=== PATIENT | male | born 1955 | race Caucasian/White ===

== ENCOUNTER → 2022-08-25 11:04 | Outpatient (CLI) | payer MEDICARE, BC, SELFPAY ==
[2022-08-25 12:32] LABS: Add Manual Diff / Slide Review NO; Basophils Absolute Auto 100 /uL (0-100); Basophils Percent Auto 0.8 % (0-2); Eosinophils Absolute Auto 100 /uL (0-450); Eosinophils Percent Auto 1.6 % (2-4); Hematocrit 46.2 % (41-53); Hemoglobin 15.9 g/dL (13.5-17.5); Lymphocytes Absolute Auto 1800 /uL (1100-4500); Lymphocytes Percent Auto 21.5 % (25-40); Mean Corpuscular HGB Conc 34.4 % (30-36); Mean Corpuscular Hemoglobin 34.7 PG (26-34); Mean Corpuscular Volume 100.9 fL (80-100); Monocytes Absolute Auto 800 /uL (0-900); Monocytes Percent Auto 9.4 % (3-14); Neutrophils Absolute Auto 5700 /uL (1500-7000); Neutrophils Percent Auto 66.7 % (50-75); Platelet Count 185 X10^3/uL (150-400); Red Blood Cell Count 4.58 X10^6/uL (4.5-5.9); White Blood Cell Count 8.5 X10^3/uL (4.5-11.0)
[2022-08-25 12:57] LABS: Blood Urea Nitrogen 14 mg/dL (9-20); Calcium 8.4 mg/dL (8.4-10.2); Carbon Dioxide 27 mmol/L (22-32); Chloride 93 mmol/L (98-107); Estimated Glomerular Filt Rate 43 mL/min (>60); Glucose 123 mg/dL (80-110); HEMOLYSIS < 15 (0-50); Potassium 4.4 mmol/L (3.4-5.1); Sodium 132 mmol/L (137-145)
[2022-08-26 04:38] LABS: Labcorp Hemoglobin (Hb) A1c 6.1 % (4.8-5.6)
== END ==
PROVIDERS: Referring Provider Orthopaedic Surgery Orthopaedic Surgery of the Spine; Visit Provider Orthopaedic Surgery Orthopaedic Surgery of the Spine
DX: Z01.818 Encounter for other preprocedural examination (principal); R73.9 Hyperglycemia, unspecified; Z01.812 Encounter for preprocedural laboratory examination
CPT/HCPCS: 36415; 80048; 83036; 85025; 93005; 93010

== ENCOUNTER 2022-10-14 10:34 | Inpatient (IN) | payer MEDICARE, BC, SELFPAY ==
[2022-10-03 12:30] VITALS: BMI 36.8
[2022-10-14] VITALS (19 sets, daily range): BP systolic 103–154; BP diastolic 62–98; PULSE 65–107; RESP 12–25; TEMP 36.2–36.7; O2SAT 90–100; BMI 36.8
--- NOTE | 2022-10-14 | DI.RAD.S_ITS ---
PROCEDURE: XR LUMBAR SPINE 2-3V INDICATIONS: L3-4 TLIF TECHNIQUE: 2 views of the lumbar spine were acquired. COMPARISON: None. FINDINGS: 2 intraoperative fluoroscopic images of the lumbar spine demonstrates posterior spinal fusion and discectomy at L3-4. Paraspinal rods pedicular screws appear grossly intact. Normal postsurgical alignment. IMPRESSION: Intraoperative fluoroscopic support for posterior lumbar fusion at L3-4. Please see separate procedure note for further details. Dictated by: Yves Marc M.D. on 10/14/2022 at 15:31 Approved by: Yves Marc M.D. on 10/14/2022 at 15:35
--- NOTE | 2022-10-14 11:12 | PM.PREOP ---
Pre-operative Note COVID-19 Criteria for continued procedure: Expected advancement of disease process, Possibility delay results in more complex future surgery or treatment, Increased loss of function, Continuing or worsening of significant or severe pain, Deterioration of the patient's condition or overall health and Delay expected to result in less-positive ultimate med/surg outcome Interval Note History & Physical reviewed/Exam performed by Physician: Yes Changes to H&P: No
[2022-10-14] MEDS: ACETAMINOPHEN 325 MG TABLET 975 MG PO (11:26)
[2022-10-14] MEDS: GABAPENTIN 600 MG TABLET PO (11:26)
[2022-10-14] MEDS: LACTATED RINGERS 1,000 ML 42 ML IV (11:27)
[2022-10-14 11:48] LABS: BUN Creatinine Ratio 13.5 (6-22); Blood Urea Nitrogen 13 mg/dL (9-20); Calcium 7.9 mg/dL (8.4-10.2); Carbon Dioxide 30 mmol/L (22-32); Chloride 96 mmol/L (98-107); Estimated Glomerular Filt Rate > 60 mL/min (>60); Glucose 135 mg/dL (80-110); HEMOLYSIS < 15 (0-50); Potassium 3.5 mmol/L (3.4-5.1); Sodium 132 mmol/L (137-145)
--- NOTE | 2022-10-14 11:53 | P.HP_ITS ---
History of Present Illness History of Present Illness Date Patient Seen: 10/14/22 Time Patient Seen: 11:30 Date of Onset of Symptoms: 12/17/20 Chief complaint: leg pain and weakness Narrative: Luis is a 67 year old male Who presents today for a lumbar spine consultation. Patient notes chronic low back pain for 5 years, but fell 1 month ago. Symptoms include constant sciatica, bilateral lower extremity numbness tingling. Treatments include physical therapy, Muscle relaxers, and gabapentin. Patient lives in [place] in the winter and spends [place] here. No PCP here. He has been having chronic pain for 5 years. He had multiple conservative care including CINDA, facet injections, ablations without improvement. He has difficulty walking and performing activities of daily living. [facility] Medical History Asthma Diverticulosis GERD (gastroesophageal reflux disease) Gout Hiatal hernia History of COVID-19 (~03/2022) HTN (hypertension) Neuropathy Palpitations Pre-diabetes Sciatica Skin abscess Surgical History History of ankle surgery Hx of arthroscopy of right knee Hx of bilateral cataract extraction Hx of LASIK Hx of tonsillectomy Social History household members: spouse Smoking Status: Never smoker alcohol intake: current Meds Home Medications and Allergies Home Medications Medication Instructions Recorded Confirmed Type allopurinol 300 mg tablet 300 mg PO DAILY 10/03/22 10/14/22 History amlodipine 10 mg-benazepril 20 mg 1 cap PO DAILY 10/03/22 10/14/22 History capsule amoxicillin 500 mg capsule 1,000 mg PO QAM Chronic skin 10/03/22 10/14/22 History abscess esomeprazole magnesium 40 mg 40 mg PO DAILY 10/03/22 10/14/22 History capsule,delayed release gabapentin 600 mg tablet 1,200 mg PO BEDTIME 10/03/22 10/14/22 History hydrochlorothiazide 25 mg tablet 25 mg PO DAILY 10/03/22 10/14/22 History metformin 850 mg tablet 850 mg PO BID 10/03/22 10/14/22 History Allergies Allergy/AdvReac Type Severity Reaction Status Date / Time erythromycin base Allergy Severe Anaphylaxis Verified 10/14/22 10:51 morphine AdvReac Severe It had an Verified 10/14/22 10:51 adverse reaction, hyperactive Review of Systems Review of Systems ROS: Yes All systems reviewed with the patient and are negative except as otherwise documented Exam Vital Signs (past 8 hours): - 10/14/22 10:54 Temperature 97.2 F L Pulse Rate 107 H Respiratory Rate 16 Blood Pressure 136/86 Pulse Oximetry 98 Oxygen Delivery Method Room Air Oxygen Delivery Method Room Air Back/Spine/Pelvis Other: Painful lumbar ROM Neuro Other: + Straight leg raise to LLE, sensiblity decreased to bilateral LE in L3, L4, L5 dermatome, motor strenght 4/5 in L TA and EHL. Objective Labs 10/14/22 11:15 Labs: Laboratory Results - last 24 hr 10/14/22 11:15 Sodium 132 L Potassium 3.5 Chloride 96 L Carbon Dioxide 30 BUN 13 Creatinine 0.96 Estimated GFR > 60 BUN/Creatinine Ratio 13.5 Glucose 135 H Calcium 7.9 L Assessment & Plan Assessment & Plan narrative: Mr. Andersen is here for evaluation of his lumbar spine. He has symptoms of neurogenic claudication with bilateral leg weakness, numbness and tingling. He has difficulty walking due to leg weakness and pain and has significant weight gain as result. I discussed my findings with him. I discussed treatment options with risks and benefits. He may benefit from surgical decompression with L3-4 total facetectomies and cyst removal, which will render his L3-4 level grossly unstable and require a fusion procedure at the same time. He has moderate stenosis with epidural lipomatosis at L4-5 level, which can be decompressed using hemilaminectomy. Risks for surgery include but not limited to bleeding, infection, nerve/dura/bladder/bowel/blood vessel injury, need for additional procedure, even . Patient understands and would like to proceed with surgery. I scheduled him for L3-4 TLIF and L4-5 hemilaminectomy.
[2022-10-14] MEDS: CEFAZOLIN 2 GM/100 ML PREMIX 100 ML IV ×2 (12:20→20:44)
--- NOTE | 2022-10-14 12:56 | SUR.OPER ---
Prone on spine table, head in foam head support, padded chest and pelvic supports, gel pad at knees, lower legs supported by pillows; nipples, genitalia and toes free of pressure, arms secured on foam padded arm boards at <90 degrees abduction. Tape over blanket at thigh secured to table.
[2022-10-14] MEDS: BUPIVACAINE LIPOSOME 266 MG/20 ML VIAL INJ (14:28)
[2022-10-14] MEDS: BUPIVACAINE 0.25% (PF) 30 ML, EPINEPHrine 0.15 MG INJ (14:30)
--- NOTE | 2022-10-14 14:54 | PM.OP.1 ---
Operative Date/Time/Diagnoses Date of procedure: 10/14/22 Time of procedure: 12:30 Pre-op diagnosis: 1. L3-4, L4-5 spinal stenosis 2. 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 Epidural lipomatosis Post-op diagnosis: same Procedure & Clinicians Procedure: 1. L3-4 Postero-lateral and posterior interbody fusion 2. L3-4 interbody cage placement. 3. L3-4 decompressive laminectomy with bilateral facetecomies 4. L3-4 Posterior non-segmental instrumentation 5. L4-5 left hemilaminectomy 6. [place] of bone marrow from iliac crest 7. Utilization of microsurgical technique and operating microscope7 Same procedure as scheduled: Yes Indications: Patient has been having chronic back pain and worsening lumbar radiculopathy and symptoms of neurogenic claudication. Patient failed multiple conservative management with worsening pain weakness and numbness in his lower extremity. Patient has been having difficulty performing activity of daily living. After discussing risks benefits of treatment options, patient elected proceed with surgery. Surgeon: Christo Argueta Gauge Maker Apprentice: Jazmin Mendoza Click Yes if Unassisted: No Anesthesia Type: General Operative Notes Closure Type: primary Specimen(s): none sent Prosthetic devices, grafts, tissues, transplants, or devices: Globus revolve screws, Rise cage Estimated Blood Loss (mL): 50 Blood products transfused: none Procedure in detail: Patient was seen in the preoperative area. Risks and benefits of the surgery was discussed with the patient. Informed consent was obtained from the patient and placed in the chart. Surgical site was marked. Patient was taken to the operative room. General anesthesia was administered. Prophylactic antibiotic was given to the patient less than 30 min before the incision was made. Patient was placed into a prone position on the Daryl table. Patient's back was then prepped and draped in the sterile fashion. Time-out was performed at this time. Using AP and lateral C-arm imaging the interval between L3-4 L4-5 was identified and marked on patient's back. A 2 inch incision 2 in from midline was made on the left side first. The fascia was incised in line with skin incision. Globus MARS retractors was placed inside the incision and docked onto the L3 lamina. Using microsurgical technique and operating microscope, a L3 laminectomy and L3-4 facetectomy was performed using a Kerrison rongeur. The laminectomy and facetectomy was performed in order to decompress patient's cauda equina as well as the nerve roots exiting at the L3-4 level. The disc space at L3-4 was identified. And a total diskectomy was performed at L3-4 level. The endplates were decorticated using a rasp and shaver. The total diskectomy and decortication was performed at L3-4 level in order to to accomplish a L3-4 fusion. The local bone from the laminectomy and facetectomy was saved for local bone grafting. After the total diskectomy and decortication was completed, Globus viacell bone graft material was combined with local bone that was harvested earlier. At this time, a separate skin is incision was made over the iliac crest. A Jamshidi needle was inserted into the iliac crest through a separate skin incision. 5 cc of bone marrow aspiration was obtained through the separate skin incision using a Jamshidi needle from the iliac crest. The bone marrow aspiration was combined with local bone and the via cell bone grafting material. The bone grafting material was placed into the L3-4 interbody space along with a expandable cage. The cage was expanded to its maximum height using the torque limiting screwdriver. Patient was found have a large 1.5 cm synovial cyst in epidural space originating from the L3-4 facet on the left side. The cyst wall was intimately adhered to the epidural fat along with the dura. There was also significant amount of epidural lipomatosis further contributing to the severe spinal stenosis at L3-4 level. After the laminectomy facetectomy cyst removal and the lipomatosis removal. The epidural space and lateral recess was fully decompressed. At this time the MARS retractor was redirected over the L4 lamina. Using microsurgical technique and operating microscope, a L4-5 heminectomy was performed using the Kerrison rongeur. The ligamentum flavum was also resected at the side of the hemilaminectomy for further decompression of the epidural space. At this time a mirror image incision was made on the right side. The fascia was incised in line with the skin incision. Globus MARS retractor was inserted and docked onto the L3-4 posterolateral gutter. Using the power drill, posterior-lateral decortication was performed at L3-4 level until bleeding cortical bone was identified. The remaining bone grafting material was placed into the L3-4 posterior lateral gutter he order to accomplish posterolateral fusion at the L3-4 level. Using the double C-arm technique, pedicle screws were placed into the L3 and L4 pedicles bilaterally. This was done by placing the Jamshidi needle into the pedicles, then placing the guidewires over the Jamshidi needle, and finally placing the cannulated screws over the guidewires bilaterally. After the pedicle screws were placed, 2 titanium rods was locked into the heads of the pedicle screws using locking caps and torque limiting screwdriver. After all the hardware was placed, and confirmed with AP and lateral C-arm imaging, the wound was then irrigated with sterile normal saline and packed with Ray-Syeda gauze for 3 min to accomplish hemostasis. After the gauze was removed the deep fascia was closed with #1 Vicryl suture. The subcutaneous layer was closed with 2-0 Vicryl. The skin was closed with skin jf. Patient tolerated the procedure well. There were no complications. Complications: none Post-operative Condition: stable Disposition: PACU Plan for aftercare: Admit to inpatient hospital
[2022-10-14] MEDS: hydrOXYzine 50 MG/ML INJ 25 MG IM (15:18)
[2022-10-14] MEDS: HYDROMORPHONE 2 MG INJ IV ×4 (15:23→15:56)
--- NOTE | 2022-10-14 15:47 | SUR.PHASEI ---
Dr Argueta at bedside. Informed of patient complaints of new pain to left inner leg from groin to knee. No new orders. stated surgery went well.
[2022-10-14] MEDS: LORazepam 2 MG/ML INJ 0.25 MG IV ×2 (16:08→16:13)
[2022-10-14] MEDS: OXYCODONE IR 5 MG TABLET PO (16:32)
[2022-10-14] MEDS: LACTATED RINGERS 1,000 ML 125 ML IV (18:31)
--- NOTE | 2022-10-14 19:26 | PC.NURSE ---
Day shift: Pt admitted to the floor from PACU at 1715. Incision on pt's back has scant amount of drainage. Pt rating pain 4/10. PIV running LR at 125. Educated patient on IS, pt sat'ing 88-92 on room air. With incentive spirometer, sats increase to 97 percent. Pt did not void before surgery or in PACU. STATIONARY BOILER FIREMAN bladder scanned him at 1700 for 187mL. Pt has not voided yet as of 1899, night RN Jimmy rodriguez. [facility] in tact. Pt's at bedside. Pt states he drinks approximately 3 drinks each night - CIWA protocol initiated. No s/sx now. Will continue to monitor.
[2022-10-14] MEDS: OXYCODONE IR 10 MG TABLET PO (20:44)
[2022-10-14] MEDS: ACETAMINOPHEN 325 MG TABLET 650 MG PO (20:45)
[2022-10-14] MEDS: DOCUSATE 100 MG CAPSULE PO (20:46)
[2022-10-14] MEDS: METFORMIN HCL 500 MG TABLET 750 MG PO (20:46)
[2022-10-14] MEDS: hydrOXYzine pamoate 25 MG CAPSULE PO (20:46)
[2022-10-14] MEDS: GABAPENTIN 600 MG TABLET 1200 MG PO (20:46)
[2022-10-14] MEDS: SENNOSIDES 8.6 MG TABLET 17.2 MG PO (20:46)
[2022-10-15] MEDS: OXYCODONE IR 10 MG TABLET PO ×6 (00:14→20:04)
[2022-10-15 01:36] VITALS: BP 125/78; PULSE 87; RESP 18; TEMP 36.8; O2SAT 95
[2022-10-15] MEDS: ACETAMINOPHEN 325 MG TABLET 650 MG PO ×2 (03:27→20:05)
[2022-10-15] MEDS: PANTOPRAZOLE DR 40 MG TABLET PO (05:33)
[2022-10-15] MEDS: CEFAZOLIN 2 GM/100 ML PREMIX 100 ML IV (05:33)
[2022-10-15 08:00] VITALS: BP 125/75; PULSE 94; RESP 16; TEMP 36.2; O2SAT 97
[2022-10-15] MEDS: allopurinoL 100 MG TABLET 300 MG PO (08:19)
[2022-10-15] MEDS: hydroCHLOROthiazide 25 MG TABLET PO (08:19)
[2022-10-15] MEDS: DOCUSATE 100 MG CAPSULE PO ×2 (08:19→20:05)
[2022-10-15] MEDS: AMLODIPINE 5 MG TABLET 10 MG PO (08:19)
[2022-10-15 08:20] VITALS: BP 125/75; PULSE 94
[2022-10-15] MEDS: lisinopriL 20 MG TABLET PO (08:20)
[2022-10-15] MEDS: METFORMIN HCL 500 MG TABLET 750 MG PO ×2 (08:20→20:04)
[2022-10-15] MEDS: AMOXICILLIN 250 MG CAPSULE 1000 MG PO (08:20)
--- NOTE | 2022-10-15 09:06 | PM.DS.1 ---
History of Present Illness History of Present Illness Date Patient Seen: 10/15/22 Time Patient Seen: 09:06 Chief complaint: leg pain and weakness Narrative: Operative Date/Time/Diagnoses Date of procedure: 10/14/22 Time of procedure: 12:30 Pre-op diagnosis: 1. L3-4, L4-5 spinal stenosis 2. 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 Epidural lipomatosis Post-op diagnosis: same Procedure & Clinicians Procedure: 1. L3-4 Postero-lateral and posterior interbody fusion 2. L3-4 interbody cage placement. 3. L3-4 decompressive laminectomy with bilateral facetecomies 4. L3-4 Posterior non-segmental instrumentation 5. L4-5 left hemilaminectomy 6. [place] of bone marrow from iliac crest 7. Utilization of microsurgical technique and operating microscope7 Same procedure as scheduled: Yes Indications: Patient has been having chronic back pain and worsening lumbar radiculopathy and symptoms of neurogenic claudication. Patient failed multiple conservative management with worsening pain weakness and numbness in his lower extremity.? Patient has been having difficulty performing activity of daily living.? After discussing risks benefits of treatment options, patient elected proceed with surgery. Surgeon: Christo Argueta Pillowcase Sewer: Jazmin Mendoza Click Yes if Unassisted: No Anesthesia Type: General Operative Notes Closure Type: primary Specimen(s): none sent Prosthetic devices, grafts, tissues, transplants, or devices: Globus revolve screws, Rise cage Estimated Blood Loss (mL): 50 Blood products transfused: none Discharge Providers Provider Date of admission: 10/14/22 10:34 Discharge Date: 10/15/22 Consults: 10/14/22 11:07 Consult to Gang Plank Workman Routine Comment: 10/14/22 17:12 Consult to Occupational Therapy Evaluate & Treat Comment: Physician Instructions: Evaluate and treat Consult to Physical Therapy Evaluate & Treat Comment: Physician Instructions: Evaluate and Treat 10/14/22 18:06 Consult to Gang Plank Workman Routine Comment: Discharge provider: Jazmin Mendoza PA-C Summary Hospital Course Discharge Diagnosis: L3-4, L4-5 spinal stenosis, L3-4 synovial cyst with epidural adhesion, Epidural lipomatosis; s/p lumbar fusion and hemilaminectomy Hospital Course: Mr Andersen's hospital course was unremarkable. In the PACU, he was c/o severe LLE pain, but on the morning of POD# 1 this had resolved. He had back pain only, and this was controlled w/ oral medication. He was eating and voiding without difficulty. He had not been OOB or worked w/ PT yet. He felt he would like to go home later in the day if he passed PT with flying colors; [place] and wants to make sure he is safe to return. Exam Vital Signs (past 8 hours): - 10/15/22 01:36 10/15/22 08:20 Temperature 98.3 F Pulse Rate 87 94 H Respiratory Rate 18 Blood Pressure 125/78 125/75 Pulse Oximetry 95 Oxygen Flow Rate 0 Oxygen Delivery Method Room Air Oxygen Flow Rate 0 Narrative Exam Narrative: 5/5 strength in hip flexors, quadriceps, hamstrings, DF, PF, EHL bilaterally. Sensation to light touch intact in BLE. Calves soft, compressible, nontender and without palpable cords or masses. Dressing placed intraoperatively w/ bloody drainage. Objective Labs 10/14/22 11:15 Labs: Laboratory Results - last 24 hr 10/14/22 11:15 Sodium 132 L Potassium 3.5 Chloride 96 L Carbon Dioxide 30 BUN 13 Creatinine 0.96 Estimated GFR > 60 BUN/Creatinine Ratio 13.5 Glucose 135 H Calcium 7.9 L PFSH Medical History Asthma Diverticulosis GERD (gastroesophageal reflux disease) Gout Hiatal hernia History of COVID-19 (~03/2022) HTN (hypertension) Neuropathy Palpitations Pre-diabetes Sciatica Skin abscess Surgical History History of ankle surgery Hx of arthroscopy of right knee Hx of bilateral cataract extraction Hx of LASIK Hx of tonsillectomy Social History household members: spouse Smoking Status: Never smoker alcohol intake: current Discharge Assessment & Plan Assessment and Plan Assessment: L3-4, L4-5 spinal stenosis, L3-4 synovial cyst with epidural adhesion, Epidural lipomatosis; s/p lumbar fusion and hemilaminectomy Plan of Treatment: Discharge home later today if pt does well w/ PT and is feeling confident in getting around his boat. Multimodal pain control, f/u in office in 2 weeks as scheduled. Discharge Plan Discharge Plan Patient Disposition: Home Discharge orders & Medications Prescriptions: New oxycodone 5 mg tablet 5 mg PO Q4H PRN (Reason: pain, severe) Qty: 60 0RF docusate sodium 100 mg Capsule 100 mg PO BID PRN (Reason: constipation) Qty: 60 1RF acetaminophen 325 mg Tablet 650 mg PO Q6H PRN (Reason: Fever/Mild Pain (1-3)) Qty: 240 0RF hydroxyzine pamoate 25 mg Capsule 25 mg PO Q4HR PRN (Reason: muscle spasm) Qty: 90 0RF Continued amoxicillin 500 mg Capsule 1,000 mg PO QAM gabapentin 600 mg Tablet 1,200 mg PO BEDTIME metformin 850 mg Tablet 850 mg PO BID esomeprazole magnesium 40 mg Capsule,Delayed Release(Dr/Ec) 40 mg PO DAILY allopurinol 300 mg Tablet 300 mg PO DAILY hydrochlorothiazide 25 mg Tablet 25 mg PO DAILY amlodipine-benazepril 10-20 mg Capsule 1 cap PO DAILY Follow up/Referrals: Christo Argueta MD [Physician] - As previously scheduled (Follow up with Dr Argueta on 10/27/2022 @ 10:40 am at [facility].) Diet/Activity/Treatments Diet: Diet as Tolerated Activity: No deep bending or twisting at the waist. No lifting more than 10 pounds. Cold/Heat Therapy: Heating pad to low back as needed for pain. Skin/Wound/Dressing Care Report to your healthcare provider any signs of infection, such as:: chills, fever, night sweats, unusual drainage and unusual redness Dressing: May shower; keep dressing as dry as possible. If dressing becomes wet or dirty, may remove and replace with clean, dry gauze. No bathing or otherwise soaking incisions. Do not apply any creams, lotions, or ointments to incisions. Visit Report/Discharge Packet Instructions: DI for Prescription Opioid Use, DI for Transforaminal Lumbar Interbody Fusion Stand Alone Forms: Patient Portal/API, Stroke Signs & Symptoms, Surgery Discharge
--- NOTE | 2022-10-15 11:56 | PT.IIE ---
Current Diagnoses Spinal stenosis, lumbar region with neurogenic claudication (10/14/22) Other bursal cyst, other site (10/14/22) Arthrodesis status (10/14/22) Surgery Performed Operation Date: 10/14/22 12:15 Actual Procedures p L3-4 TLIF L4-5 hemilaminectomy - Christo Argueta MD Surgical History (Last Reviewed 10/14/22 @ 11:55 by Christo Argueta MD) History of ankle surgery Hx of arthroscopy of right knee Hx of bilateral cataract extraction Hx of LASIK Hx of tonsillectomy Medical History (Last Reviewed 10/14/22 @ 11:55 by Christo Argueta MD) Asthma Diverticulosis GERD (gastroesophageal reflux disease) Gout Hiatal hernia History of COVID-19 (~03/2022) HTN (hypertension) Neuropathy Palpitations Pre-diabetes Sciatica Skin abscess Physical Therapy Inpatient Evaluation/Re-Eval M1 PT/OT-IP Prior Functional Status Start: 10/15/22 13:09 Freq: NEEDED Status: Active Protocol: Document 10/15/22 11:56 AB (Rec: 10/15/22 13:42 AB [id number]) Medical Review Prior Functional Status Medical History Reviewed Yes Communication able to make needs known Mobility and Gait pt stated that he is modified independent with all mobilities and ambulation without AD but has h/o falls Social History Household Members spouse Living Arrangements Other Number of Floors (Floors) Two Floors Number of Stairs To Enter/Railing? pt lives on a boat during the summer and lives in [place] for the winter has 4 steps without rails to get into the boat has 4 steps B rails to go down to the kitchen/bedroom area Home Environment Standard Height Toilet,Walk in Shower,Built-In Shower Seat Home Equipment Front Wheel Walker,Straight Cane,Hand Held Shower Additional Social History Comment pt stated that a FWW will not fit in the boat M2 PT-IP Current Condition Start: 10/15/22 13:09 Freq: NEEDED Status: Active Protocol: Document 10/15/22 11:56 AB (Rec: 10/15/22 13:42 AB [id number]) Physical Therapy Current Condition Current Condition Evaluation Date 10/15/22 Treatment Diagnosis s/p L3-4 fusion; L4-5 hemilami ; difficulty in walking Onset Date 10/14/22 M3 PT-IP Subjective Start: 10/15/22 13:09 Freq: NEEDED Status: Active Protocol: Document 10/15/22 11:56 AB (Rec: 10/15/22 13:42 AB [id number]) Subjective Physical Therapy Visit Type Type Initial Evaluation Visit Start Time 12:56 Visit Stop Time 12:35 Total Visit Minutes 39 Number of GOLF SHOE SPIKE ASSEMBLER Visits 0 Physical Therapy Visit Comments Patient Comments agreeable to do PT Therapy Pain Assessment Pain When Pain Assessed At Rest Pain Present Pain Present Pain Reported Location low back Intensity 6 Pain Management Techniques Distraction,Modification of Treatment,Re-positioning, Timing of Activity with Medications M4 PT-IP Mobility and Gait Start: 10/15/22 13:09 Freq: NEEDED Status: Active Protocol: Document 10/15/22 11:56 AB (Rec: 10/15/22 13:42 AB [id number]) PT-Bed Mobility Assessment Rolling Type of Rolling Log Rolling Level of Assist Maximal Assistance Supine to Sit Supine to Sit Maximum Assistance PT-Transfer Assessment Sit to and From Stand Sit to and from Stand Maximum Assistance,2 Person Assistance,Use of Upper Extremities Equipment Transfer Assistive Device Gait Belt,Front Wheeled Walker Orthotic/Prosthetic Devices or Brace: No Transfers Transfer Destination Toilet Transfer Technique Stand Step Pivot Transfer Ability Level of Assist Maximum Assistance,2 Person Assistance,Use of Upper Extremities Comments Mobility Comments pt supine in bed. spouse in room with pt. BP checked: 124 /74. pt requesting to use the toilet. educated with back precautions and log roll bed mobility. completed log roll bed mobility max A and max cues. able to sit on EOB SBA. completed sit to stand max A x 1-2 and max cues. presents with (+) R knee buckling and instructed to sit back on EOB. educated on activate quads for standing. completed sit to stand max A x 2 and max cues. completed marching in place x 2 using FWW and pt continued to have RLE buckling. bedside commode placed next to pt. pt completed sit to stand max A x 2 and step transfer to bedside commode max A x 2 and max cues using FWW. required max A to stabilize R knee but also presents with L knee buckling during transfer. pt wanting to use the commode for a few minutes. left pt with call button within reach. NAC and nurse aware. Gait Assessment Comments Gait Comments unable to ambulate at this time PT-Balance Assessment Sitting Balance and Reactions Static Sitting Balance Ability Good Dynamic Sitting Balance Ability Fair Standing Balance and Reactions Static Standing Balance Ability Poor Dynamic Standing Balance Ability Poor Device Used FWW M5 PT-IP Objective Assessments Start: 10/15/22 13:09 Freq: NEEDED Status: Active Protocol: Document 10/15/22 11:56 AB (Rec: 10/15/22 13:42 AB [id number]) Orientation Orientation/Cognition Level of Alertness Alert Orientation Name,Place,Situation Language Function Ability No Deficits Noted Safety Awareness Decreased Safety Awareness Memory Description No Deficits Noted Gross Range of Motion Lower Extremity ROM Assessment Within Functional Limits Strength Lower Extremity Strength Assessment Bilaterally Impaired Comments Strength Comments RLE: 4-/5 except DF: 3+/5 LLE: 3+/5 Sensation Assessment Sensation Sensation Description Numbness Comments Sensation Comments BLE numbness lower leg to feet Muscle Tone Muscle Tone WNL Yes M6 PT-IP Treatment Start: 10/15/22 13:09 Freq: NEEDED Status: Active Protocol: Document 10/15/22 11:56 AB (Rec: 10/15/22 13:42 AB [id number]) Physical Therapy Treatment Education Education Provided Precautions,Weight Bearing Status,Post-Op Packet,Safety M7 PT-IP Assessment and Plan Start: 10/15/22 13:09 Freq: NEEDED Status: Active Protocol: Document 10/15/22 11:56 AB (Rec: 10/15/22 13:42 AB [id number]) PT Summary Assessment and Plan Potential Rehabilitation Potential Fair Status of Condition at Evaluation Evolving Summary Impairments Pain,ROM,Strength,Balance, Coordination,Sensation,Tone, Cognition,Bed Mobility, Transfers,Gait,Activity Tolerance Assessment Summary pt s/p L3-4 fusion, L4-5 hemilami POD 1. pt requiring max A x 2 for transfers using FWW with (+) B knee buckling and unable to safely ambulate at this time. Pt lives on a boat and is not safe to d/c back to his boat and will need SNF rehab. Goals Bed Mobility Goal Minimal Assistance Transfer Goal Minimal Assistance,Front Wheeled Walker Gait Goal Minimal Assistance,Front Wheel Walker Gait Distance 100 Other Goals improve bed mobility, transfers, ambulation using FWW 200 up/down 4 steps without rails/ SPC CGA up/down 4 steps B rails SBA Days to Meet Goals 10 Frequency of Treatment Frequency Of Treatment Twice a Day Treatment Plan Physical Therapy Treatment Plan Bed Mobility Training,Transfer Training,Gait Training, Therapeutic Exercise,Balance Retraining,Post Op Education, Discharge Planning,Hot or Cold Pack,Neuromuscular Re-ed, Coordination Retraining,Manual Therapy Precautions Lumbar Precautions Log Roll,No Twisting,Limit Bending,Lifting Restriction of 10 lbs,Gait Belt above Incisional Area Recommendations To Nursing Amount of Assist Needed 2 Person Assist Discharge Recommendations PT Discharge Recommendations SNF Rehab Transportation Needs at Discharge Private Vehicle,Wheelchair/ Cabulance
[2022-10-15 12:35] VITALS: BP 128/76; PULSE 93; RESP 18; TEMP 36.4; O2SAT 97
--- NOTE | 2022-10-15 14:00 | PT.IPTN ---
Current Diagnoses Spinal stenosis, lumbar region with neurogenic claudication (10/14/22) Other bursal cyst, other site (10/14/22) Arthrodesis status (10/14/22) Surgery Performed Operation Date: 10/14/22 12:15 Actual Procedures p L3-4 TLIF L4-5 hemilaminectomy - Christo Argueta MD Physical Therapy Treatment Note M2 PT-IP Current Condition Start: 10/15/22 13:09 Freq: NEEDED Status: Active Protocol: Document 10/15/22 11:56 AB (Rec: 10/15/22 13:42 AB [id number]) Physical Therapy Current Condition Current Condition Evaluation Date 10/15/22 Treatment Diagnosis s/p L3-4 fusion; L4-5 hemilami ; difficulty in walking Onset Date 10/14/22 M3 PT-IP Subjective Start: 10/15/22 13:09 Freq: NEEDED Status: Active Protocol: Document 10/15/22 14:33 TS (Rec: 10/15/22 14:48 TS [id number]) Subjective Physical Therapy Visit Type Type Treatment Note Visit Start Time 14:00 Visit Stop Time 14:30 Total Visit Minutes 30 Number of ADJUNCT INSTRUCTOR IN ECONOMICS Visits 1 Physical Therapy Visit Comments Patient Comments Pt reports having increased pain this afternoon, required some motivation to work with PT. Therapy Pain Assessment Pain When Pain Assessed At Rest Pain Present Pain Present Pain Reported M4 PT-IP Mobility and Gait Start: 10/15/22 13:09 Freq: NEEDED Status: Active Protocol: Document 10/15/22 14:33 TS (Rec: 10/15/22 14:48 TS [id number]) PT-Bed Mobility Assessment Rolling Type of Rolling Log Rolling Level of Assist Moderate Assistance Supine to Sit Supine to Sit Moderate Assistance Sit to Supine Sit to Supine Moderate Assistance Scooting Scooting to Edge of Bed Standby Assistance PT-Transfer Assessment Sit to and From Stand Sit to and from Stand Moderate Assistance,1 Person Assistance,Use of Upper Extremities Equipment Transfer Assistive Device Gait Belt,Front Wheeled Walker Orthotic/Prosthetic Devices or Brace: No Comments Mobility Comments Logroll ModA for hip and shoulders all the way on side, provided cues for handrail assist and logroll sequencing. Supine to sit ModA for uprighting trunk, pt demonstrated some carryover of sequencing, cues were provided for LEs over EOB. Sit to stand ModA, pt braces back of LEs against bed for balance, knees are locked into ext. He ambulated ~8' initially ModA progressed to Wanda, pt continues to lock knees in ext, feels if he bends knee it will buckle. Sit to supine ModA for LEs into bed, provided cues for logroll sequencing. Pt was left back in bed with call light nearby, all needs met. Gait Assessment Gait Gait Assistance Required: Minimum Assistance,Moderate Assistance Distance (Feet) 8 Assistive Devices Assistive Device Front Wheeled Walker Gait Deviations General Gait Pattern Decreased Stride Length, Decreased Feet Clearance,Step- to Gait,Wide Based Gait Factors Limiting Gait Function Factors Limiting Gait Function Decreased Activity Tolerance, Decreased Sensation,Decreased Strength,Limited Range of Motion,Pain,Poor Balance,Poor Safety Awareness Comments Gait Comments See mobility comments. PT-Balance Assessment Sitting Balance and Reactions Static Sitting Balance Ability Good Dynamic Sitting Balance Ability Fair Standing Balance and Reactions Static Standing Balance Ability Fair Dynamic Standing Balance Ability Fair Device Used FWW M5 PT-IP Objective Assessments Start: 10/15/22 13:09 Freq: NEEDED Status: Active Protocol: Document 10/15/22 11:56 AB (Rec: 10/15/22 13:42 AB [id number]) Orientation Orientation/Cognition Level of Alertness Alert Orientation Name,Place,Situation Language Function Ability No Deficits Noted Safety Awareness Decreased Safety Awareness Memory Description No Deficits Noted Gross Range of Motion Lower Extremity ROM Assessment Within Functional Limits Strength Lower Extremity Strength Assessment Bilaterally Impaired Comments Strength Comments RLE: 4-/5 except DF: 3+/5 LLE: 3+/5 Sensation Assessment Sensation Sensation Description Numbness Comments Sensation Comments BLE numbness lower leg to feet Muscle Tone Muscle Tone WNL Yes M6 PT-IP Treatment Start: 10/15/22 13:09 Freq: NEEDED Status: Active Protocol: Document 10/15/22 14:33 TS (Rec: 10/15/22 14:48 TS [id number]) Physical Therapy Treatment Education Education Provided Precautions,Weight Bearing Status,Post-Op Packet,Safety M7 PT-IP Assessment and Plan Start: 10/15/22 13:09 Freq: NEEDED Status: Active Protocol: Document 10/15/22 14:33 TS (Rec: 10/15/22 14:48 TS [id number]) PT Summary Assessment and Plan Potential Rehabilitation Potential Fair Summary Impairments Pain,ROM,Strength,Balance, Coordination,Sensation,Tone, Cognition,Bed Mobility, Transfers,Gait,Activity Tolerance Progress Towards Goals Progressing Toward Goals Assessment Summary Pt progressed his bed mobility to ModA for logroll and supine to sit, requires cueing for sequencing. He performed sit to stand x1 with ModA from elevated bed. Pt locks knees in standing and with gait due fear of bending knee and buckling. He progressed his gait to 8' initially ModA for balance and keeping upright, progressed to Wanda. He had one instance of minor buckling on R side but no LOB. PT is recommending SNF rehab at this time to progress bed mobility , transfers and gait. Pt needs heavy cueing for mobility and is unsteady with gait. He would benefit from continued therapy to progress safely back home. Pt is agreeable to go to rehab if that is what he needs. Goals Bed Mobility Goal Minimal Assistance Transfer Goal Minimal Assistance,Front Wheeled Walker Gait Goal Minimal Assistance,Front Wheel Walker Gait Distance 100 Other Goals improve bed mobility, transfers, ambulation using FWW 200 up/down 4 steps without rails/ SPC CGA up/down 4 steps B rails SBA Days to Meet Goals 10 Frequency of Treatment Frequency Of Treatment Twice a Day Treatment Plan Physical Therapy Treatment Plan Bed Mobility Training,Transfer Training,Gait Training, Therapeutic Exercise,Balance Retraining,Post Op Education, Discharge Planning,Hot or Cold Pack,Neuromuscular Re-ed, Coordination Retraining,Manual Therapy Precautions Lumbar Precautions Log Roll,No Twisting,Limit Bending,Lifting Restriction of 10 lbs,Gait Belt above Incisional Area Recommendations To Nursing Amount of Assist Needed 2 Person Assist Discharge Recommendations PT Discharge Recommendations SNF Rehab Equipment Needed for Home Before Will need FWW. Discharge Transportation Needs at Discharge Private Vehicle,Wheelchair/ Cabulance
--- NOTE | 2022-10-15 15:01 | CM.DANOTE ---
Initial DCP Assessment Note Pt is a 67 yo male, resident of [place], [place], now POD#[address] Argueta PCP: Out of State Payer: [place]ORI/BRETT Out of [facility] Met w/patient and his spouse at bedside, introduced self and role. Patient explains he and his live on their boat in the summer around this area, no local family or friends. they live in [place] the rest of the year Patient typically indp at baseline, admits to some atrophy of my muscles r/t not moving as much because of the severity of his back pain Patient plans to discharge to his boat however admits I thought this would be easier and so we discussed the back up options ie hotel room, stay with family in [facility] and SNF rehab options. Discussed Medicare SNF benefit Patient says he will consider SNF if PT recommends [place] later than therapies indeed are recommending SNF for this patient however unable to return to patient's room to review Medicare SNF choice list today CM team will need to follow closely for coordination; need to review SNF choice list with patient, begin referrals and complete PASRR. Medicare ready for discharge to SNF on 10.17.22 BISHNU Abebe Discharge Planning/Care Management CM Discharge Assessment Start: 10/15/22 14:57 Freq: Status: Active Protocol: Document 10/15/22 14:57 ANA (Rec: 10/15/22 15:01 ANA [id number]) Discharge Planning Assessment Assigned Test Facility Engineer BISHNU Walton DPOA/Assigned Designee Name Chula Andersen, spouse Contact Information [phone] Advance Directives? No History Provided By Patient,Significant Other, Medical Record Prior Living Arrangements Other Comment Living on their boat currently Household Members spouse Type of transporation used prior to Drives own vehicle admit Independent with ADL's Yes: Mobility severely limited by pain Is patient alert and oriented? Yes Patient/Family Preference [facility] Barriers to Discharge Yes Comment Lives on a boat, PT recommending SNF at this time Discharge Plan [facility] Transportation Arrangement Likely w/c Additional Comment Need to review Medicare choice list with patient and make SNF referrals Whiteboard Updated in Patient Room with Yes name and ext. # of Test Facility Engineer
--- NOTE | 2022-10-15 15:34 | PC.NURSE ---
Day shift: Notified ELLIOTT Mendoza since pt's BLE have small amounts of serous drainage. Pt's legs both swollen yesterday, pt reports they have been this way for a few months. Cleaned and covered with gauze and coban. ELLIOTT Wu said continue to monitor. Dressing change x 2 today - pt moving around in bed often and dressing gets disrupted. Minimal drainage. Pt OOB with 2PA to BSC. Pain well controlled with 10mg oxycodone PRN. Will continue to monitor.
[2022-10-15 17:42] VITALS: BP 119/62; PULSE 69; RESP 16; TEMP 36; O2SAT 99
[2022-10-15 19:40] VITALS: BP 127/70; PULSE 94; RESP 18; TEMP 36.7; O2SAT 98
[2022-10-15] MEDS: SENNOSIDES 8.6 MG TABLET 17.2 MG PO (20:04)
[2022-10-15] MEDS: GABAPENTIN 600 MG TABLET 1200 MG PO (20:04)
[2022-10-15] MEDS: hydrOXYzine pamoate 25 MG CAPSULE PO (20:05)
[2022-10-16] VITALS (7 sets, daily range): BP systolic 120–141; BP diastolic 69–87; PULSE 89–106; RESP 17–18; TEMP 36.6–37.4; O2SAT 94–97
[2022-10-16] MEDS: hydrOXYzine pamoate 25 MG CAPSULE PO ×7 (00:29→23:56)
[2022-10-16] MEDS: OXYCODONE IR 10 MG TABLET PO ×7 (00:29→23:56)
[2022-10-16] MEDS: PANTOPRAZOLE DR 40 MG TABLET PO (06:05)
[2022-10-16] MEDS: allopurinoL 100 MG TABLET 300 MG PO (08:15)
[2022-10-16] MEDS: AMOXICILLIN 250 MG CAPSULE 1000 MG PO (08:16)
[2022-10-16] MEDS: DOCUSATE 100 MG CAPSULE PO ×2 (08:16→20:06)
[2022-10-16] MEDS: hydroCHLOROthiazide 25 MG TABLET PO (08:17)
[2022-10-16] MEDS: lisinopriL 20 MG TABLET PO (08:17)
[2022-10-16] MEDS: METFORMIN HCL 500 MG TABLET 750 MG PO ×2 (08:18→20:05)
[2022-10-16] MEDS: AMLODIPINE 5 MG TABLET 10 MG PO (08:18)
--- NOTE | 2022-10-16 09:19 | CM.DPC ---
Addendum entered by Bonita Macedo R.N. 10/16/22 11:38: Updated Dr. Argueta, that [facility] can accept patient tomorrow. Completed PASSR. [facility] had called back and confirmed acceptance. Original Note: DCP Cont: Met with patient in his room. Introduced self and role. Confirmed that he resides in [place], but stay here during the summer on his boat. He knows that he may need some alf prior to going back to his boat, preference is to be here in town. Did bring in the list, [facility] is ok. His third Medicare midnight would be tomorrow. Called Farzana at [facility], she is currently reviewing. P: DCP to continue to follow. Gave referral to [facility], let her know that he would be eligible by tomorrow. Bonita Macedo RN/Tandem Operator
--- NOTE | 2022-10-16 11:40 | PM.PN.1 ---
Exam Vital Signs (past 8 hours): - 10/16/22 05:05 10/16/22 08:17 10/16/22 09:03 Temperature 98.0 F 98.3 F Pulse Rate 89 96 H 96 H Respiratory Rate 18 18 Blood Pressure 136/85 132/87 132/87 Pulse Oximetry 97 94 Oxygen Flow Rate 0 0 Oxygen Delivery Method Room Air Oxygen Flow Rate 0 Objective Labs 10/14/22 11:15 PFSH Medical History Asthma Diverticulosis GERD (gastroesophageal reflux disease) Gout Hiatal hernia History of COVID-19 (~03/2022) HTN (hypertension) Neuropathy Palpitations Pre-diabetes Sciatica Skin abscess Surgical History History of ankle surgery Hx of arthroscopy of right knee Hx of bilateral cataract extraction Hx of LASIK Hx of tonsillectomy Social History household members: spouse Smoking Status: Never smoker alcohol intake: current Assessment & Plan Assessment & Plan narrative: Patient is admitted after surgery. POD#2 s/p L3-4 TLIF and L4-5 hemilaminectomy. Patient has been stable and progressing with physical therapy. Patient is neurovascularly intact on exam. Patient has no signs or symptoms of DVT. Patient's dressing is clean dry and intact. Patient is still quite limited for mobility. Will need rehab placement since patient lives on a boat and is not cleared for discharge. Will continue PT/OT and possible discharge to rehab tomorrow.
--- NOTE | 2022-10-16 11:43 | PT-IP ANOTE ---
Pt refused AM treatment due to fatigue from recent ambulation w/ nursing staff. Agreeable to PM treatment.
--- NOTE | 2022-10-16 12:23 | PT.IPTN ---
Current Diagnoses Spinal stenosis, lumbar region with neurogenic claudication (10/14/22) Other bursal cyst, other site (10/14/22) Arthrodesis status (10/14/22) Surgery Performed Operation Date: 10/14/22 12:15 Actual Procedures p L3-4 TLIF L4-5 hemilaminectomy - Christo Argueta MD Physical Therapy Treatment Note M2 PT-IP Current Condition Start: 10/15/22 13:09 Freq: NEEDED Status: Active Protocol: Document 10/15/22 11:56 AB (Rec: 10/15/22 13:42 AB [id number]) Physical Therapy Current Condition Current Condition Evaluation Date 10/15/22 Treatment Diagnosis s/p L3-4 fusion; L4-5 hemilami ; difficulty in walking Onset Date 10/14/22 M3 PT-IP Subjective Start: 10/15/22 13:09 Freq: NEEDED Status: Active Protocol: Document 10/16/22 12:00 KS (Rec: 10/16/22 13:12 KS [id number]) Subjective Physical Therapy Visit Type Type Treatment Note Visit Start Time 12:00 Visit Stop Time 12:23 Total Visit Minutes 23 Number of WASTEWATER ENGINEER Visits 2 Physical Therapy Visit Comments Patient Comments Pt agreeable, present. M4 PT-IP Mobility and Gait Start: 10/15/22 13:09 Freq: NEEDED Status: Active Protocol: Document 10/16/22 12:00 KS (Rec: 10/16/22 13:12 KS [id number]) PT-Bed Mobility Assessment Rolling Type of Rolling Log Rolling Level of Assist Moderate Assistance Supine to Sit Supine to Sit Moderate Assistance Scooting Scooting to Edge of Bed Standby Assistance PT-Transfer Assessment Sit to and From Stand Sit to and from Stand Moderate Assistance,1 Person Assistance,Use of Upper Extremities Equipment Transfer Assistive Device Gait Belt,Front Wheeled Walker Orthotic/Prosthetic Devices or Brace: No Transfers Transfer Destination Chair,Toilet Transfer Technique pt ambulated w/ FWW Transfer Ability Level of Assist Moderate Assistance,1 Person Assistance,Use of Upper Extremities Comments Mobility Comments Pt in bed upon arrival, able to recall precautions. in room. Mod A for logroll and sup<>sit, SBA for scooting EOB . Mod A for sit<>Stand w/ FWW. Pt locks L knee to avoid buckling w/ each step, ambulated to toilet Min A and sat to void, scant amount of blood, RN made aware. Pt then ambulaed to chair, c/o increased pain and fatigue. Pt left in chair w/ all needs in reach. Gait Assessment Gait Gait Assistance Required: Minimum Assistance,1 Person Assist Distance (Feet) 15 Assistive Devices Assistive Device Front Wheeled Walker Gait Deviations General Gait Pattern Decreased Stride Length, Decreased Feet Clearance,Step- to Gait,Wide Based Gait Factors Limiting Gait Function Factors Limiting Gait Function Decreased Activity Tolerance, Decreased Sensation,Decreased Strength,Limited Range of Motion,Pain,Poor Balance,Poor Safety Awareness Comments Gait Comments See mobility comments. PT-Balance Assessment Sitting Balance and Reactions Static Sitting Balance Ability Good Dynamic Sitting Balance Ability Fair Standing Balance and Reactions Static Standing Balance Ability Fair Dynamic Standing Balance Ability Fair Device Used FWW M5 PT-IP Objective Assessments Start: 10/15/22 13:09 Freq: NEEDED Status: Active Protocol: Document 10/15/22 11:56 AB (Rec: 10/15/22 13:42 AB [id number]) Orientation Orientation/Cognition Level of Alertness Alert Orientation Name,Place,Situation Language Function Ability No Deficits Noted Safety Awareness Decreased Safety Awareness Memory Description No Deficits Noted Gross Range of Motion Lower Extremity ROM Assessment Within Functional Limits Strength Lower Extremity Strength Assessment Bilaterally Impaired Comments Strength Comments RLE: 4-/5 except DF: 3+/5 LLE: 3+/5 Sensation Assessment Sensation Sensation Description Numbness Comments Sensation Comments BLE numbness lower leg to feet Muscle Tone Muscle Tone WNL Yes M6 PT-IP Treatment Start: 10/15/22 13:09 Freq: NEEDED Status: Active Protocol: Document 10/16/22 12:00 KS (Rec: 10/16/22 13:12 IN [id number]) Physical Therapy Treatment Education Education Provided Precautions,Weight Bearing Status,Post-Op Packet,Safety M7 PT-IP Assessment and Plan Start: 10/15/22 13:09 Freq: NEEDED Status: Active Protocol: Document 10/16/22 12:00 KS (Rec: 10/16/22 13:12 KS [id number]) PT Summary Assessment and Plan Potential Rehabilitation Potential Fair Summary Impairments Pain,ROM,Strength,Balance, Coordination,Sensation,Tone, Cognition,Bed Mobility, Transfers,Gait,Activity Tolerance Progress Towards Goals Progressing Toward Goals Assessment Summary Pt limited by pain and poor sensation in BLE as well as L knee buckling. Pt was able to control L knee buckling while ambulating today, still requires Mod A for bed mobility and sit<>stand. He will benefit from continue skilled therapy and due to needs/home setup and assistance required would benefit from SNF at this time. Goals Bed Mobility Goal Minimal Assistance Transfer Goal Minimal Assistance,Front Wheeled Walker Gait Goal Minimal Assistance,Front Wheel Walker Gait Distance 100 Other Goals improve bed mobility, transfers, ambulation using FWW 200 up/down 4 steps without rails/ SPC CGA up/down 4 steps B rails SBA Days to Meet Goals 10 Frequency of Treatment Frequency Of Treatment Twice a Day Treatment Plan Physical Therapy Treatment Plan Bed Mobility Training,Transfer Training,Gait Training, Therapeutic Exercise,Balance Retraining,Post Op Education, Discharge Planning,Hot or Cold Pack,Neuromuscular Re-ed, Coordination Retraining,Manual Therapy Precautions Lumbar Precautions Log Roll,No Twisting,Limit Bending,Lifting Restriction of 10 lbs,Gait Belt above Incisional Area Recommendations To Nursing Amount of Assist Needed 1 Person Assist Discharge Recommendations PT Discharge Recommendations SNF Rehab Equipment Needed for Home Before Will need FWW. Discharge Transportation Needs at Discharge Private Vehicle,Wheelchair/ Cabulance
[2022-10-16] MEDS: SENNOSIDES 8.6 MG TABLET 17.2 MG PO (20:06)
[2022-10-16] MEDS: GABAPENTIN 600 MG TABLET 1200 MG PO (20:06)
[2022-10-17 06:56] VITALS: BP 120/69; PULSE 94; RESP 18; TEMP 37.1; O2SAT 96
[2022-10-17] MEDS: hydrOXYzine pamoate 25 MG CAPSULE PO (07:02)
[2022-10-17] MEDS: OXYCODONE IR 10 MG TABLET PO (07:02)
--- NOTE | 2022-10-17 07:09 | PM.DS.1 ---
History of Present Illness History of Present Illness Date Patient Seen: 10/17/22 Time Patient Seen: 07:09 Chief complaint: leg pain and weakness Narrative: Operative Date/Time/Diagnoses Date of procedure: 10/14/22 Time of procedure: 12:30 Pre-op diagnosis: 1. L3-4, L4-5 spinal stenosis 2. 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 Epidural lipomatosis Post-op diagnosis: same Procedure & Clinicians Procedure: 1. L3-4 Postero-lateral and posterior interbody fusion 2. L3-4 interbody cage placement. 3. L3-4 decompressive laminectomy with bilateral facetecomies 4. L3-4 Posterior non-segmental instrumentation 5. L4-5 left hemilaminectomy 6. [place] of bone marrow from iliac crest 7. Utilization of microsurgical technique and operating microscope7 Same procedure as scheduled: Yes Indications: Patient has been having chronic back pain and worsening lumbar radiculopathy and symptoms of neurogenic claudication. Patient failed multiple conservative management with worsening pain weakness and numbness in his lower extremity.? Patient has been having difficulty performing activity of daily living.? After discussing risks benefits of treatment options, patient elected proceed with surgery. Surgeon: Christo Argueta Casting Inspector: Jazmin Mendoza Click Yes if Unassisted: No Anesthesia Type: General Operative Notes Closure Type: primary Specimen(s): none sent Prosthetic devices, grafts, tissues, transplants, or devices: Globus revolve screws, Rise cage Estimated Blood Loss (mL): 50 Blood products transfused: none Discharge Providers Provider Date of admission: 10/14/22 10:34 Discharge Date: 10/17/22 Consults: 10/14/22 11:07 Consult to Marketing Project Lead Routine Comment: 10/14/22 17:12 Consult to Occupational Therapy Evaluate & Treat Comment: Physician Instructions: Evaluate and treat Consult to Physical Therapy Evaluate & Treat Comment: Physician Instructions: Evaluate and Treat 10/14/22 18:06 Consult to Marketing Project Lead Routine Comment: Discharge provider: Jazmin Mendoza PA-C Summary Hospital Course Discharge Diagnosis: L3-4, L4-5 spinal stenosis, 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 [place] and was not felt to be safe for discharge to this environment. Per RN report, he had some lymphorrhea in his lower extremities during his stay; pt [place] lives 1 mile [place] sea [place] and states he has LE edema when he comes to sea level. On the morning of POD# 3, he was eating and voiding without difficulty and his pain was well-controlled with oral medication. Exam Vital Signs (past 8 hours): Oxygen Delivery Method Room Air Oxygen Flow Rate 0 Narrative Exam Narrative: 5/5 strength in hip flexors, quadriceps, hamstrings, DF, PF, EHL bilaterally. Sensation to light touch intact in BLE. Calves are minimally edematous, dry, compressible and without palpable cords or masses. Dressings CDI. Objective Labs // 11:15 PFSH Medical History Asthma Diverticulosis GERD (gastroesophageal reflux disease) Gout Hiatal hernia History of COVID-19 (~03/2022) HTN (hypertension) Neuropathy Palpitations Pre-diabetes Sciatica Skin abscess Surgical History History of ankle surgery Hx of arthroscopy of right knee Hx of bilateral cataract extraction Hx of LASIK Hx of tonsillectomy Social History household members: spouse Smoking Status: Never smoker alcohol intake: current Discharge Assessment & Plan Assessment and Plan Assessment: L3-4, L4-5 spinal stenosis, L3-4 synovial cyst with epidural adhesion, Epidural lipomatosis; s/p lumbar fusion and hemilaminectomy Plan of Treatment: Discharge to SNF. Multimodal pain control, f/u in office in 2 weeks as scheduled. Discharge Plan Discharge Plan Patient Disposition: SNF Transfer to: [facility] Discharge orders & Medications Prescriptions: New acetaminophen 325 mg Tablet 650 mg PO Q6H PRN (Reason: Fever/Mild Pain (1-3)) Qty: 240 0RF docusate sodium 100 mg Capsule 100 mg PO BID PRN (Reason: constipation) Qty: 60 1RF hydroxyzine pamoate 25 mg Capsule 25 mg PO Q4HR PRN (Reason: muscle spasm) Qty: 90 0RF oxycodone 5 mg tablet 5 mg PO Q4H PRN (Reason: pain, severe) Qty: 60 0RF (DME) walker Misc See Rx Instructions .Route Qty: 1 0RF Rx Instructions: Front-wheeled walker oxycodone 5 mg tablet 5 mg PO Q4H PRN (Reason: pain) Qty: 60 0RF Continued amoxicillin 500 mg Capsule 1,000 mg PO QAM gabapentin 600 mg Tablet 1,200 mg PO BEDTIME metformin 850 mg Tablet 850 mg PO BID esomeprazole magnesium 40 mg Capsule,Delayed Release(Dr/Ec) 40 mg PO DAILY allopurinol 300 mg Tablet 300 mg PO DAILY hydrochlorothiazide 25 mg Tablet 25 mg PO DAILY amlodipine-benazepril 10-20 mg Capsule 1 cap PO DAILY Follow up/Referrals: Christo Argueta MD [Physician] - As previously scheduled (Follow up with Dr Argueta on 10/27/2022 @ 10:40 am at [facility] in [place].) Diet/Activity/Treatments Diet: Diet as Tolerated Activity: No deep bending or twisting at the waist. No lifting more than 10 pounds. Cold/Heat Therapy: Heating pad to low back as needed for pain. Skin/Wound/Dressing Care Report to your healthcare provider any signs of infection, such as:: chills, fever, night sweats, unusual drainage and unusual redness Dressing: May shower; keep dressing as dry as possible. If dressing becomes wet or dirty, may remove and replace with clean, dry gauze. No bathing or otherwise soaking incisions. Do not apply any creams, lotions, or ointments to incisions. Visit Report/Discharge Packet Instructions: DI for Prescription Opioid Use, DI for Transforaminal Lumbar Interbody Fusion Stand Alone Forms: Patient Portal/API, Surgery Discharge
[2022-10-17] MEDS: allopurinoL 100 MG TABLET 300 MG PO (08:22)
[2022-10-17 08:23] VITALS: BP 120/69; PULSE 95
[2022-10-17] MEDS: hydroCHLOROthiazide 25 MG TABLET PO (08:23)
[2022-10-17] MEDS: DOCUSATE 100 MG CAPSULE PO (08:23)
[2022-10-17] MEDS: AMOXICILLIN 250 MG CAPSULE 1000 MG PO (08:23)
[2022-10-17] MEDS: METFORMIN HCL 500 MG TABLET 750 MG PO (08:23)
[2022-10-17] MEDS: AMLODIPINE 5 MG TABLET 10 MG PO (08:23)
[2022-10-17] MEDS: lisinopriL 20 MG TABLET PO (08:23)
--- NOTE | 2022-10-17 08:34 | CM.DPC ---
DCP Cont: Patient is to be going to [facility] today. Orders were completed by ortho PACElena faxed to [facility], including PASSR and DC Summary. Updated nurse, Love, and gave her report number. intranet support is 10:00, updated white board at main nurses station and coordinator, Mattie. P: Patient is discharging to [facility] today, with brain picker at 10:00. Bonita Macedo RN/Car Rental Agency Manager
== END 2022-10-17 10:10 | DRG 455 ==
PROVIDERS: Anesthesiology; Admitting Provider Orthopaedic Surgery Orthopaedic Surgery of the Spine; Referring Provider Orthopaedic Surgery Orthopaedic Surgery of the Spine; Visit Provider Orthopaedic Surgery Orthopaedic Surgery of the Spine
PROC: 0SG00AJ Fusion of Lumbar Vertebral Joint with Interbody Fusion Device, Posterior Approach, Anterior Column, Open Approach (ICD-10-PCS; principal; 2022-10-14 12:15)
DX: M48.062 Spinal stenosis, lumbar region with neurogenic claudication (principal); G96.12 Meningeal adhesions (cerebral) (spinal); M71.38 Other bursal cyst, other site; E88.2 Lipomatosis, not elsewhere classified; R73.03 Prediabetes; I10 Essential (primary) hypertension; K21.9 Gastro-esophageal reflux disease without esophagitis; M10.9 Gout, unspecified; I89.8 Other specified noninfective disorders of lymphatic vessels and lymph nodes
CPT/HCPCS: 72100; 76000; 80048; 82962; 97116; 97162; 97530; C1713; C1831; C9290; J0171; J0690; J1100; J1170; J2060; J2250; J2405; J2704; J3010; J3410